=== PATIENT | female | born 1990 | race Caucasian/White ===

== ENCOUNTER 2023-11-20 06:48 | Day surgery (SDC) | payer OTHER, SELFPAY ==
[2023-11-20] VITALS (12 sets, daily range): BP systolic 121–180; BP diastolic 64–114; BMI 39.2
[2023-11-20] MEDS: TORADOL 30 MG IV (03:01)
--- NOTE | 2023-11-20 03:01 | ED.GENMED ---
History of Present Illness
General
Chief Complaint: Flank Pain
Source: patient
Exam Limitations: none
Time Seen by Provider: 11/20/23 02:51
Nursing documentation reviewed up to this point in time: agreed with
History of Present Illness
History of Present Illness:
This is a 32-year-old woman who has history of hypothyroidism, anxiety maintained on Synthroid and Lexapro. She presents with abrupt onset of moderate to severe right-sided abdominal pain that woke her from sleep at 1 AM. Right-sided abdominal
pain radiates to her back, accompanied with nausea without vomiting. She admits to feeling mildly restless, briefly mildly diaphoretic. No chest pain, no cough no shortness of breath. No diarrhea or constipation, no dysuria no urgency nor
hematuria. No history of similar episodes in the past.
She denies risk of . Last menstrual period October 23.
She has remote history of ovarian cysts during high school years. Current symptoms feel different from pain she experienced with ovarian cyst.
No previous abdominal surgeries.
There is family history of kidney stones as well as cholecystitis.
Past History
Past History
ED Past Medical History: Hypothyroidism, Psychiatric and Other (Ovarian cyst during teen years)
ED Past Surgical History: Orthopedic (Ankle) and Tonsilectomy
Social History
Tobacco: Non-smoker
Alcohol: None
Drug: None
Living: with family
Employment: Employed
Family History
Family History: Other (Father with history of kidney stones, mother with history of gallbladder disease.)
Phy Exam
Physical Exam
Physical Exam:
GENERAL: 32-year-old obese woman appears her stated age, awake and alert, pleasant, appears in moderate distress related to pain. Cooperative.
EYE: anicteric
NECK: Supple, nontender, no meningismus, no significant adenopathy.
ENT: oral mucosa is moist. No rhinorrhea.
CARDIAC: Regular rate and rhythm. no murmur.
LUNGS: Clear breath sounds bilaterally, no acute respiratory distress, no wheezes/rales/rhonchi
ABDOMEN: Soft, nondistended, moderate tenderness right upper quadrant, epigastric region as well as mild tenderness right lower quadrant. No r/g, no cvat. normoactive BS.
NEUROLOGICAL: Alert and oriented x3, no focal neuro deficits. Gait is steady.
SKIN: Warm and dry, normal color, skin intact. No rash.
MUSCULOSKELETAL: No C/C/E. peripheral pulses are full and equal b/l. No palpable tenderness.
PSYCH: Normal and appropriate interaction.
Course
Orders/Labs/Results
Orders:
Orders
11/20/23 02:59
Ketorolac [Toradol] 30 mg .ROUTE .STK-MED ONE
Ondansetron Injectable [Zofran] 4 mg .ROUTE .STK-MED ONE
11/20/23 03:00
Test Result ONCE
11/20/23 03:01
Ketorolac [Toradol] 30 mg IV NOW STA
11/20/23 03:03
Ondansetron Injectable [Zofran] 4 mg IV NOW STA
11/20/23 03:04
CMP [Comprehensive Metabolic Panel] Urgent
Complete Blood Count/With Diff Urgent
HCG, Serum Qualitative Screen Urgent
Lipase Urgent
11/20/23 03:33
Morphine Sulfate 4 mg .ROUTE .STK-MED ONE
11/20/23 03:34
Morphine Sulfate 4 mg IV NOW STA
11/20/23 04:07
US Abdomen Complete/Upper Urgent
Comment:
Reason For Exam: acute upper abd pain, nausea
11/20/23 04:40
Urine Reflex Culture from UA [Urinalysis Reflex To Culture] Urgent
Date Specimen was Collected: 11/20/23
Time Specimen was Collected: 04:40
11/20/23 06:08
Piperacillin/Tazo 4.5 Gram [Zosyn] 4.5 gram in 100 ml IV NOW
Abnormal Lab Results
11/20/23
03:04
Plt Count 410 H 10^3/uL
(130-400)
Absolute Monos (auto) 0.8 H 10^3/uL
(0.1-0.6)
Glucose 102 H mg/dl
(70-99)
11/20/23 03:04
11/20/23 03:04
Vital Signs
Initial and Last Documented VS:
Initial Vital Signs
Temp Pulse Resp BP Pulse Ox
98.5 F 80 26 180/114 98
11/20/23 02:31 11/20/23 02:31 11/20/23 02:31 11/20/23 02:31 11/20/23 02:31
Last Documented Vital Signs
Temp Pulse Resp BP Pulse Ox
98.5 F 74 20 130/86 98
11/20/23 02:31 11/20/23 04:41 11/20/23 04:41 11/20/23 04:41 11/20/23 04:41
MDM/Problems Addressed
Differential Diagnosis Includes:
Concern for acute biliary colic, cholecystitis, renal colic/ureteric stone, pancreatitis, ruptured ovarian cyst. Ovarian torsion is less likely.
Will medicate for pain and nausea, initiate IV fluids, check labs and urinalysis.
Will consider CT versus ultrasound depending on clinical course and laboratory studies.
*Radiology
Radiology exam reviewed: radiology read reviewed
*Pulse Oximetry
Patient hypoxic: no
*[employer] Consultant Interpretation
Rate: normal
Interpretation: normal
Rhythm: sinus
*Critical Care Note
Total Time (30-74mins, 75-104mins- exclusive of procedures): Not Applicable
Update Note
Update Note:
Patient had no significant relief of pain after IV Toradol, much more comfortable after IV morphine but continues with moderate tenderness epigastric and right upper quadrant.
Labs are unremarkable as is urinalysis but ultrasound shows cholelithiasis with wall thickening to 3.1 mm which could reflect cholecystitis. Common bile duct 5 mm.
Due to persistent pain, ultrasound concerning for cholecystitis will initiate IV antibiotics, admit to general surgery service, continue IV fluids.
Case discussed with Dr. Motta.
ED Attending Note
-
Portions of this chart may have been created with voice recognition software.� Occasional wrong word or��sound alike� substitutions may have occurred due to the inherent limitations of voice recognition software.
Discharge Plan
Departure
Patient Disposition: Admit
Date of Disposition: 11/20/23
Time of Disposition: 06:11
Admit to: Med/Surg
Admit to doctor: Kalia
Presentation/result/management discussed w/ accepting MD/DO: gen surg
Condition: Fair
Discharge Problem:
Acute calculous cholecystitis
Prescriptions:
No Action
levothyroxine [Synthroid] 175 mcg Tablet
175 mcg PO DAILY
escitalopram oxalate [Lexapro] 20 mg Tablet
20 mg PO DAILY
Referrals:
Maryellen Hernandez CRNP [Family Provider] -
Interventions
Interventions:
*Risk Screen - Suicide Last Done: 11/20/23 02:31
*General Assessment Last Done: 11/20/23 05:49
*Neglect/Abuse Screening Last Done: 11/20/23 02:31
ED- Fall Risk Assessment Last Done: 11/20/23 03:16
*ED COVID-19 Vaccine History Last Done: 11/20/23 04:29
BY-Ptmcsb-Nlrnusiath Assessment Last Done: 11/20/23 03:16
ED-Female Genitourinary Assessment Last Done: 11/20/23 03:16
Discharge Date and Time
Print Language: TAJIK
[2023-11-20] MEDS: ZOFRAN 4 MG IV (03:03)
[2023-11-20 03:12] LABS: % Basophils 0.4 % (0-2); % Eosinophils 1.7 % (0-6); % Immature Granulocytes 0.3 % (0-0.5); % Lymphocytes 33.6 % (20.5-51.1); % Monocytes 7.5 % (1.7-9.3); % Neutrophils 56.5 % (42.2-75.2); Absolute Eosinophils 0.2 10^3/uL (0-0.7); Absolute Lymphocytes 3.3 10^3/uL (1.2-3.4); Absolute Monocytes 0.8 10^3/uL (0.1-0.6); Absolute Neutrophils 5.6 10^3/uL (1.4-6.5); Hematocrit 37.4 % (37.0-47.0); Hemoglobin 13.1 g/dL (12.0-16.0); Mean Corpuscular Volume 88.4 fL (81.0-99.0); Mean Platelet Volume 9.4 fL (7.4-10.4); Nucleated Red Blood Cells % 0 %; Platelet Count 410 10^3/uL (130-400); Red Blood Cell Count 4.23 10^6/uL (4.20-5.40); Red Cell Dist. Width 12.3 % (11.5-14.5); White Blood Cell Count 9.9 10^3/uL (4.8-10.8)
[2023-11-20 03:20] LABS: HCG, Serum Qualitative Screen Negative
[2023-11-20 03:27] LABS: ALT (SGPT) 32 U/L (0-35); AST (SGOT) 25 U/L (14-36); Albumin 4.2 g/dl (3.5-5.0); Alkaline Phosphatase 99 U/L (38-126); Blood Urea Nitrogen 15 mg/dl (7-17); Calcium 9.8 mg/dl (8.4-10.2); Carbon Dioxide 27 mmol/L (22-30); Chloride 103 mmol/L (98-107); Estimated Creatinine Clearance 113 ml/min; Glucose 102 mg/dl (70-99); Lipase 110 U/L (23-300); Potassium 3.7 mmol/L (3.5-5.1); Sodium 137 mmol/L (135-145); Total Bilirubin 0.4 mg/dl (0.2-1.3); Total Protein 6.8 g/dl (6.3-8.2); eGFR > 60.00
[2023-11-20] MEDS: MORPHINE SULFATE 4 MG IV ×2 (03:34→07:38)
[2023-11-20 04:54] LABS: Urine Albumin Negative (Neg - Trace); Urine Bilirubin Negative (Negative); Urine Character Clear (Clear); Urine Color Yellow; Urine Glucose Negative (Negative); Urine Ketone Negative (Negative); Urine Leukocyte Negative (Negative); Urine Nitrite Negative (Negative); Urine Occult Blood Negative (Negative); Urine Specific Gravity 1.015 (<1.030); Urine Urobilinogen Negative (Neg - 1+)
[2023-11-20] MEDS: ZOSYN 100 IV (06:21)
[2023-11-20] MEDS: NSS 1000 IV (06:21)
--- NOTE | 2023-11-20 06:43 | HPS.HSE ---
Family Physician
-
Family Physician: Maryellen Hernandez
Chief Complaint
-
ruq abd pain
History of Present Illness
This is a 32-year-old woman who has history of hypothyroidism, anxiety maintained on Synthroid and Lexapro. She presents with abrupt onset of moderate to severe right-sided abdominal pain that woke her from sleep at 1 AM. Right-sided abdominal
pain radiates to her back, accompanied with nausea without vomiting. She admits to feeling mildly restless, briefly mildly diaphoretic. No chest pain, no cough no shortness of breath. No diarrhea or constipation, no dysuria no urgency nor
hematuria. No history of similar episodes in the past.
She denies risk of . Last menstrual period October 23.
She has remote history of ovarian cysts during high school years. Current symptoms feel different from pain she experienced with ovarian cyst.
No previous abdominal surgeries.
There is family history of kidney stones as well as cholecystitis.
ED treatment:
zosyn
ivf
toradol
morphine
Medical History
Past Medical History
Past Medical History: Reports Hypothyroidism and Psychiatric (anxiety)
Past Surgical History: Reports Orthopedic (left ankle surgery in september 2022. left ankle hardware removal august 2023)
Social History
Tobacco: Non-smoker
Alcohol: Occasional
Drug: None
Personal:
Living: With Family
Employment: Employed
Family History
Family History: Other (father- cholecystectomy)
Allergies / Home Medications
Allergies reflects when Allergies were last updated in [facility].
Home Medications with original date entered in [facility]
Allergy/Medication List:
Allergies
Allergy/AdvReac Type Severity Reaction Status Date / Time
No Known Allergies Allergy Verified 11/20/23 02:35
Home Medications
escitalopram oxalate 20 mg tablet (Lexapro) 20 mg PO DAILY 11/20/23
levothyroxine 175 mcg tablet (Synthroid) 175 mcg PO DAILY 11/20/23
Review of Systems
-
History Source: Patient
A 12 point ROS was completed and negative except as noted: Yes
Constitutional: Reports Sleep Disturbance (pain woke her up abruptly)
EENT: Reports No Symptoms
Respiratory: Reports No Symptoms
Cardiac: Reports No Symptoms
Abdomen/GI: Reports No Symptoms
: Reports No Symptoms
Musculoskeletal: Reports No Symptoms
Skin: Reports No Symptoms
Neurological: Reports No Symptoms
Endocrine: Reports No Symptoms
Hematologic/Lymphatic: Reports No Symptoms
Physical Exam
Vital Signs
Vital Signs
Temp Pulse Resp BP Pulse Ox
98.5 F 67 18 161/98 99
11/20/23 02:31 11/20/23 06:10 11/20/23 06:10 11/20/23 06:10 11/20/23 06:10
Physical Exam
General: Well Developed, Well Nourished and No Apparent Distress
HEENT: NormoCephalic, Anicteric and Moist mucous membranes
Respiratory: Clear
Cardiac: S1/S2 and Regular Rhythm
Breast: Deferred by me
GI: Soft, Normal Bowel Sounds, Tender (RUQ) and Distended (mildly)
Rectal: Other
Genito-urinary: Deferred by me
Musculoskeletal: No Clubbing and No Cyanosis
Skin: Warm and Dry
Neuro: Awake, Alert, Oriented, AO x 3 and No Sensory Deficits
Hematologic/Lymphatic: No Lymphadenopathy
Psych: Calm
Laboratory Results
-
11/20/23 03:04
11/20/23 03:04
Laboratory Results
Total Bilirubin 0.4 mg/dl (0.2-1.3) 11/20/23 03:04
AST 25 U/L (14-36) 11/20/23 03:04
ALT 32 U/L (0-35) 11/20/23 03:04
Alkaline Phosphatase 99 U/L (38-126) 11/20/23 03:04
Lipase 110 U/L (23-300) 11/20/23 03:04
Data Reviewed
-
Ultrasound: Report Reviewed by me
Impression/Plan
-
IMPRESSION/PLAN:
Admit to Service of Dr Motta
med surg obs
#acute cholecystitis:
-NPO x meds
-ivf: nss@125/hr
-cont: zosyn iv q6h
-pain control: morphine toradol prn
#anxiety
-cont lexapro
#hypothyroid
-cont synthroid
dvt proph:scd
full code
--- NOTE | 2023-11-20 07:43 | EDRN ---
Patient medicated with Morphine 4mg IV for 7-8 out of 10 right upper abdominal pain. Patient taken to room 2100 on stretcher by business services tech with NSS infusing.
[2023-11-20] MEDS: LEXAPRO 20 MG PO (08:29)
[2023-11-20] MEDS: SYNTHROID 175 MCG PO (08:29)
--- NOTE | 2023-11-20 09:38 | CON.GS ---
Medical History
-
Chief Complaint: RUQ abdominal pain
History of Present Illness:
Patient is a 32 yo F with a PMH of obesity, hypothyroidism, and ovarian cysts who presents with less than 24 hours of RUQ abdominal pain. Ms. Sanderson states that her symptoms began acutely yesterday evening at approximately 1 AM. Symptoms are
described as severe RUQ abdominal and RIGHT sided pain which radiates to her back and RIGHT shoulder. Currently her pain is improved, but not resolved. She reports having a similar though less severe attack approximately 1 month ago. No fevers or
chills. No jaundice, pale stools, or tea colored urine. She reports recently being on Wegovy.
Past Medical History
Past Medical History: Hypothyroidism and Other (Obesity, ovarian cysts)
Past Surgical History: Orthopedic (LEFT foot surgery)
Social History
Tobacco: Non-Smoker
Alcohol: Occasional
Drug: None
Personal:
Living: With Family
Employment: Employed
Family History
Family History: Other (Family history notable for postcholecystectomy)
Allergies / Home Medications
Allergy/AdvReac Type Severity Reaction Status Date / Time
No Known Allergies Allergy Verified 11/20/23 02:35
�Medication �Instructions �Recorded �Confirmed �Type
escitalopram oxalate 20 mg tablet 20 mg PO DAILY 11/20/23 11/20/23 History
(Lexapro)
levothyroxine 175 mcg tablet 175 mcg PO DAILY 11/20/23 11/20/23 History
(Synthroid)
Review of Systems
-
A 10 point review of systems was completed, and was negative except as per HPI.
Physical Exam
Vital Signs
Temp Pulse Resp BP Pulse Ox
98.9 F 67 17 133/91 97
11/20/23 07:57 11/20/23 07:57 11/20/23 07:57 11/20/23 07:57 11/20/23 07:57
11/19/23 11/20/2311/20/24
06:59 06:59 06:59
Actual Weight 110 kg
Body Mass Index (BMI) 39.2
Lab Results
11/20/23 03:04
11/20/23 03:04
WBC 9.9 10^3/uL (4.8-10.8) 11/20/23 03:04
Hgb 13.1 g/dL (12.0-16.0) 11/20/23 03:04
Hct 37.4 % (37.0-47.0) 11/20/23 03:04
Plt Count 410 10^3/uL (130-400) H 11/20/23 03:04
Abs Immat Gran (auto) 0.0 10^3/uL (0-0.05) 11/20/23 03:04
Neutrophils % 56.5 % (42.2-75.2) 11/20/23 03:04
Physical Exam
General: Well Developed, Well Nourished and No Apparent Distress
HEENT: Normocephalic and Anicteric
Respiratory: Non Labored Respirations
Cardiac: Regular Rhythm
GI: Soft, Tender (RUQ, positive Grey sign), Obese and Other (Nonperitoneal)
Musculoskeletal: No Edema
Skin: Warm and Dry
Neuro: Nonfocal/Grossly Intact
Data Reviewed
-
Ultrasound: Image Personally Visualized and interpreted
Labs: Labs Reviewed by me
Assessment / Plan
-
Patient is a 32 yo F p/w acute cholecystitis
The natural history and pathophysiology of biliary and stone disease was briefly discussed. Anatomy was briefly reviewed. Workup thus far including labs and imaging were reviewed. Options for management were considered. Given her persistent
discomfort recommend cholecystectomy.
Plan for a laparoscopic cholecystectomy with possible cholangiogram. The procedure itself, as well as the risks, benefits, and alternatives was discussed. Specifically, we discussed the risks of bleeding, infection, injury to surrounding
structures (bowel, bile ducts), CBD injury, need for open procedure. Typical postprocedural recovery including pain management and the 10 to 20% risk of fluctuations in GI function was discussed. All questions answered. Consent signed.
-- Laparoscopic cholecystectomy with possible IOC
-- NPO, IVF
-- Antibiotics: Zosyn
-- Pain control: Tylenol and IV Dilaudid as needed
--- NOTE | 2023-11-20 09:44 | PTCARENOTE ---
Received patient around 0800 from ER in stable condition. Pain controlled. VS stable. 2 Rn skin assessment done with Lora Roca RN. Skin intact. Patient and spouse oriented to floor. Call toscano in reach.
--- NOTE | 2023-11-20 09:46 | W.SUR.PREOP ---
Pre-Operative Surgical Note
-
I have examined this patient prior to the performance of the scheduled procedure.
The patient's condition is unchanged from the time of the current History and
Physical and the patient is able to undergo the scheduled procedure.
--- NOTE | 2023-11-20 13:03 | W.IMMPOSTOP ---
Addendum entered and electronically signed by Lizandro Motta MD 11/20/23 16:05:
[facility]# [id number]
Original Note:
Surgical Immed Post Op Note
-
Primary Surgeon: Kalia
Assisting Surgeon: GHAZALA Padgett
Pre-op Diagnosis: Acute cholecystitis
Post-op Diagnosis: Acute cholecystitis
Procedure Performed: Laparoscopic cholecystectomy with IOC
Anesthesia Type: General
Specimen / Cultures:
1. Gallbladder
Estimated Blood Loss: 11 cc
Complications: None
Operative Findings:
1. Acutely inflamed and edematous GB, large numerous stones impacted at neck
2. Critical view of safety, stones cleared through ductotomy, IOC with no remaining filling defects
--- NOTE | 2023-11-20 13:10 | CM ---
Attempted to complete initial assessment. Patient is in OR.
[2023-11-20] MEDS: SUBLIMAZE 50 MCG IV (14:00)
--- NOTE | 2023-11-20 14:48 | PTCARENOTE ---
Received patient from PACU via bed around 1430 in stable condition. Patient drowsy but arousable. VS stable. 4 lap sites and 1 puncture site to abdomen DARREN CDI approximated with surgical adhesive. at bedside. Call toscano in reach.
[2023-11-20] MEDS: ROXICODONE 5 MG PO (16:18)
--- NOTE | 2023-11-21 09:26 | CM ---
Patient was medically cleared for discharge to home on 11/20/23 with no additional skilled services. Patient arranged for transport home.
== END 2023-11-20 18:05 | disposition home or self-care (01) ==
LOC: PACU 06:48
PROVIDERS: ATTENDING PHYSICIAN Surgery; EMERGENCY PHYSICIAN Emergency Medicine; FAMILY PHYSICIAN Nurse Practitioner Adult Health
DX: K80.00 Calculus of gallbladder with acute cholecystitis without obstruction (principal); K76.0 Fatty (change of) liver, not elsewhere classified; E66.01 Morbid (severe) obesity due to excess calories; Z68.41 Body mass index [BMI] 40.0-44.9, adult
CPT/HCPCS: 47563; 88304; 74300; 76000; 76700; 80053; 81003; 83690; 84703; 85025; 96365; 96375; 99285; A4300; G0378